=== PATIENT | female | born 1945 | race Hispanic/Latino ===

== ENCOUNTER 2018-09-14 17:41 | Emergency (ER) | payer MEDICARE, BC ==
[~2018-09-14] VITALS: Ht 162.6 cm; Wt 115.2 kg
--- OUTSIDE RECORDS SUMMARY | 2018-09-14 17:44 | XMS REPORT | Summary of Care ---
Author Author [facility] Address Unknown Phone Unavailable Encounter [facility]) [id number] Date(s): 04/11/17 - 05/10/17 [facility] Discharge Disposition: Home or Self Care Attending Physician: Sb Brooke MD Vital Signs No data available for this section Problem List No data available for this section Allergies, Adverse Reactions, Alerts Substance Reaction Severity Status NKDA Active Medications No data available for this section Results No data available for this section Immunizations No data available for this section Procedures Procedure Date Related Diagnosis Body Site Appendectomy Social History Social History Type Response Smoking Status Never smoker; Concerns about tobacco use in household: No; Exposure to Tobacco Smoke None; Cigarette Smoking Last 365 Days No; Reg Smoking Cessation Counseling No Assessment and Plan No data available for this section
--- OUTSIDE RECORDS SUMMARY | 2018-09-14 17:44 | XMS REPORT | Continuity of Care Document ---
Author Author Evon pieter [facility] Interface Address Unknown Phone Unavailable Problems Problem Status Onset Date Classification Date Reported Comments Source Fall from standing 03/12/2018 03/15/2018 [facility] Knee pain, left 03/12/2018 03/15/2018 [facility] LEFT KNEE PAIN Active 03/11/2018 [facility] RIGHT SHOULDER Active 11/30/2016 [facility] [place] UNK Active 04/13/2016 [facility] ENCOUNTER FOR SCREENING FOR MALIGNANT NE Active [facility] PELVIC AND PERINEAL PAIN Active [facility] MENOPAUSAL AND FEMALE CLIMACTERIC STATES Active [facility] Medications Medication Details Route Status Patient Instructions Ordering Provider Order Date Source Acetaminophen 300 MG / Codeine Phosphate 30 MG Oral Tablet [Tylenol with Codeine #3] 1 tab, PO, Q6H, PRN Pain Score 4-6, X 5 day, # 30 tab, 0 Refill(s) Active 03/12/2018 [facility] Motrin 800 mg oral tablet 800 mg=1 tab, PO, Q8H, PRN Pain, Take with food, X 5 day, # 30 tab, 0 Refill(s) Active 03/12/2018 [facility] Acetaminophen 325 MG / Hydrocodone Bitartrate 5 MG Oral Tablet [[place] 5/325] 1 tab, Route: PO, Drug Form: TAB, Dosing Weight 118.636, kg, ONCE, Start date: 03/12/18 0:25:00 CDT, Stop date: 03/12/18 0:25:00 CDTNotes: (Same as: [place] 325/5) Do not exceed 4gm/day of acetaminophen. Inactive 03/12/2018 [facility] Sodium Chloride 0.154 MEQ/ML Injectable Solution 1,000 mL, Rate: 25 ml/hr, Infuse over: 40 hr, Route: IV, Total Volume: 1,000, Start date: 04/14/16 9:18:00 CDT, Duration: 1 day, Stop date: 04/15/16 9:17:00 CDT Inactive 04/14/2016 [facility] Allergies, Adverse Reactions, Alerts Substance Category Reaction Severity Reaction type Status Date Reported Comments Source Immunizations Immunization Date Given Site Status Last Updated Comments Source Results Order Name Results Value Reference Range Date Interpretation Comments Source Knee 3 views DX Knee 3 views DX Patient Name: SEAMUS SANTILLAN : 1945; Age: 72 years y/o Female MR: [id number] Study: 3 view examination of the left knee dated 03/11/2018. Clinical Indication: Left knee pain, fall; Comparison: None No fracture or dislocation. SL: ROSE 03/11/2018 - - Read by: Edmundo Smyth MD Dictated Date/time: 03/11/18 22:36 Electronically Signed by: Edmundo Smyth MD 03/11/18 22:37 FINAL REPORT [facility] Vital Signs Vital Sign Value Date Comments Source Heart Rate 80 03/12/2018 [facility] Temperature Oral (F) 98.6 F 03/12/2018 [facility] Systolic (mm Hg) 146 03/12/2018 [facility] Diastolic (mm Hg) 84 03/12/2018 [facility] Respitory Rate 18 03/12/2018 [facility] Weight 118.636 03/12/2018 [facility] BMI Calculated 44.89 03/12/2018 [facility] Height 162.56 cm 03/12/2018 [facility] Temperature Oral (F) 98.7 F 03/12/2018 [facility] Systolic (mm Hg) 164 03/12/2018 [facility] Diastolic (mm Hg) 98 03/12/2018 [facility] Respitory Rate 18 03/12/2018 [facility] Heart Rate 89 03/12/2018 [facility] Respitory Rate 18 04/14/2016 [facility] Systolic (mm Hg) 133 04/14/2016 [facility] Diastolic (mm Hg) 84 04/14/2016 [facility] Systolic (mm Hg) 144 04/14/2016 [facility] Diastolic (mm Hg) 65 04/14/2016 [facility] Respitory Rate 17 04/14/2016 [facility] Systolic (mm Hg) 106 04/14/2016 [facility] Diastolic (mm Hg) 58 04/14/2016 [facility] Respitory Rate 24 04/14/2016 [facility] Height 157.48 cm 04/14/2016 [facility] Weight 116.364 04/14/2016 [facility] BMI Calculated 46.92 04/14/2016 [facility] Heart Rate 70 04/14/2016 [facility] Encounters Location Location Details Encounter Type Encounter Number Reason For Visit Attending Provider ADM Date DC Date Status Source [facility] Bedded Outpatient [id number] Anjel Price 04/14/2016 04/14/2016 [facility] OP Therapy Patients [id number] Sb Monaco Jr 04/11/2017 05/11/2017 [facility] Emergency [id number] Alessandro Young 03/12/2018 03/12/2018 [facility] Procedures Procedure Code Date Perfomer Comments Source Appendectomy [id number] [facility] Appendectomy [id number] [facility]
--- OUTSIDE RECORDS SUMMARY | 2018-09-14 17:44 | XMS REPORT | Summary of Care ---
Author Author [facility] Organization [facility] Address Unknown Phone Unavailable Encounter ADORE Griggs(CITLALI) [id number] Date(s): 04/14/16 - 04/14/16 [facility] [address] [place] [address]- [phone] Discharge Disposition: Home or Self Care Attending Physician: Marisol Uribe MD Referring Physician: Anjel Price MD Vital Signs 1 2 3 Most recent to oldest [Reference Range]: 157.48 cm (04/14/16 9:18 AM) Height 133/84 mmHg (04/14/16 11:31 AM) 144/65 mmHg *HI* (04/14/16 11:19 AM) 106/58 mmHg (04/14/16 11:03 AM) Blood Pressure [90-140/60-90 mmHg] 18 BRMIN (04/14/16 11:31 AM) 17 BRMIN (04/14/16 11:19 AM) 24 BRMIN *HI* (04/14/16 11:03 AM) Respiratory Rate [14-20 BRMIN] 70 bpm (04/14/16 9:12 AM) Peripheral Pulse Rate [60-100 bpm] 116.364 kg (04/14/16 9:18 AM) Weight 46.92 m2 (04/14/16 9:18 AM) Body Mass Index Problem List No data available for this section Allergies, Adverse Reactions, Alerts Substance Reaction Severity Status NKDA Active Medications sodium chloride 0.9% 1000 ml INJ 1,000 mL 1,000 mL, Rate: 25 ml/hr, Infuse over: 40 hr, Route: IV, Total Volume: 1,000, St art date: 04/14/16 9:18:00 CDT, Duration: 1 day, Stop date: 04/15/16 9:17:00 CDT Start Date: 04/14/16 Stop Date: 04/14/16 Status: Discontinued Results No data available for this section [...]
--- OUTSIDE RECORDS SUMMARY | 2018-09-14 17:44 | XMS REPORT | Summary of Care ---
Author Author [facility] Organization [facility] Address Unknown Phone Unavailable Encounter ADORE Griggs([facility]LAL[facility]) [id number] Date(s): 03/11/18 - 03/12/18 [facility] [address] [place] [address]- Encounter Diagnosis Fall from standing (Discharge Diagnosis) - 03/12/18 Knee pain, left (Discharge Diagnosis) - 03/12/18 Discharge Disposition: Home or Self Care Attending Physician: Alessandro Young MD Vital Signs Most recent to 1 2 oldest [Reference Range]: Height 162.56 cm (03/11/18 9:12 PM) Temperature Oral 98.6 DegF 98.7 DegF [96.4-99.1 DegF] (03/12/18 1:35 AM) (03/11/18 9:12 PM) Blood Pressure 146/84 mmHg 164/98 mmHg [90-140/60-90 mmHg] *HI* *HI* (03/12/18 1:35 AM) (03/11/18 9:12 PM) Respiratory Rate 18 BRMIN 18 BRMIN [14-20 BRMIN] (03/12/18 1:35 AM) (03/11/18 9:12 PM) Peripheral Pulse 80 bpm 89 bpm Rate [60-100 bpm] (03/12/18 1:35 AM) (03/11/18 9:12 PM) Weight 118.636 kg (03/11/18 9:12 PM) Body Mass Index 44.89 m2 (03/11/18 9:12 PM) Problem List No data available for this section Allergies, Adverse Reactions, Alerts Substance Reaction Severity Status NKDA Active Medications Motrin 800 mg oral tablet 800 mg=1 tab, PO, Q8H, PRN Pain, Take with food, X 5 day, # 30 tab, 0 Refill(s) Start Date: 03/12/18 Stop Date: 03/17/18 Status: Ordered [place] 5/325 oral tablet 1 tab, Route: PO, Drug Form: TAB, Dosing Weight 118.636, kg, ONCE, Start date: 0 03/12/18 0:25:00 CDT, Stop date: 03/12/18 0:25:00 CDT Notes: (Same as: [place] 325/5) Do not exceed 4gm/day of acetaminophen. Start Date: 03/12/18 Stop Date: 03/12/18 Status: Completed Tylenol with Codeine #3 oral tablet 1 tab, PO, Q6H, PRN Pain Score 4-6, X 5 day, # 30 tab, 0 Refill(s) Start Date: 03/12/18 Stop Date: 03/17/18 Status: Ordered Results No data available for this section Immunizations No data available for this section Procedures Procedure Date Related Diagnosis Body Site Status Appendectomy Completed Social History Social History Type Response Smoking Status Never smoker; Concerns about tobacco use in household: No; Exposure to Tobacco Smoke None; Cigarette Smoking Last 365 Days No; Reg Smoking Cessation Counseling No entered on: 03/12/18 Assessment and Plan No data available for this section
--- NOTE | 2018-09-14 19:26 | Diagnostic Imaging Report ---
EXAMINATION: CHEST 2 VIEWS INDICATION: Cough, congestion for one week COMPARISON: None FINDINGS: PA and lateral views TUBES and LINES: None. LUNGS: The lungs are diffusely hyperinflated. There are 2 linear bands of chronic atelectasis/scar in the lingula. There is no evidence of pneumonia or pulmonary edema. PLEURA: No pleural effusion or pneumothorax. HEART AND MEDIASTINUM: The heart is normal in size. The aorta is ectatic. BONES AND SOFT TISSUES: There are degenerative changes of the thoracic spine. No focal osseous lesions. Soft tissues are unremarkable. UPPER ABDOMEN: No free air under the diaphragm. IMPRESSION: Pulmonary hyperinflation suggestive of COPD. Subsegmental atelectasis in the lingula. No pulmonary infiltrates to suggest pneumonia. Signed by: Dr. Iftikhar Morales MD on 09/14/2018 7:22 PM
[2018-09-15] MEDS ORDERED: AZITHROMYCIN250 MG PO (01:24)
[2018-09-15 01:25] VITALS: BP 128/78
== END 2018-09-15 01:32 | disposition home or self-care (01) ==
LOC: ER 17:41
DX: R05 Cough (principal); J20.9 Acute bronchitis, unspecified; J00 Acute nasopharyngitis [common cold]
CPT/HCPCS: 71046; 99283

== ENCOUNTER 2021-10-04 01:40 | Emergency (ER) | payer MEDICARE, BC ==
[~2021-10-04] VITALS: Ht 162.6 cm; Wt 115.2 kg
[~2021-10-04 01:40] MED LIST: AZITHROMYCIN250 MG PO
[2021-10-04] MEDS ORDERED: FENTANYL CITRATE/PF 100MCG/2 ML INJ IJ ONE (02:00)
[2021-10-04] MEDS ORDERED: LIDOCAINE 4% PATCH TP STA (02:08)
[2021-10-04] MEDS ORDERED: CYCLOBENZAPRINE5 MG PO (02:10)
[2021-10-04] MEDS ORDERED: [UNRECOGNIZED DRUG - OTHER] EXT (02:13)
== END 2021-10-04 03:48 | disposition home or self-care (01) ==
LOC: ER 01:54
DX: M54.6 Pain in thoracic spine (principal); R73.03 Prediabetes
CPT/HCPCS: 71250; 93005; 99283; J3010

== ENCOUNTER 2021-10-11 20:35 | Emergency (ER) | payer MEDICARE, BC, OTHER ==
[~2021-10-11] VITALS: Ht 162.6 cm; Wt 115.2 kg
[~2021-10-11 20:35] MED LIST changes: +CYCLOBENZAPRINE5 MG PO; +[UNRECOGNIZED DRUG - OTHER] EXT
[2021-10-11] MEDS ORDERED: ACETAMINOPHEN 325 MG TAB PO ONE (22:15)
== END 2021-10-12 01:03 | disposition home or self-care (01) ==
LOC: ER 20:56
DX: S83.91XA Sprain of unspecified site of right knee, initial encounter (principal); S00.81XA Abrasion of other part of head, initial encounter; W18.30XA Fall on same level, unspecified, initial encounter; Y93.01 Activity, walking, marching and hiking; Y92.89 Other specified places as the place of occurrence of the external cause; R73.03 Prediabetes
CPT/HCPCS: 70450; 99283

== ENCOUNTER → 2021-10-21 | Outpatient (CLI) | payer MEDICARE, BC ==
[~2021-10-21] MED LIST changes: +IOPAMIDOL 370 MG/ML 200 ML INFUS..BTL INJ ONE; +SODIUM CHLORIDE 0.9% 50ML 0 ML ONE; +SODIUM CHLORIDE 0.9% 50ML 50 ML ONE
[2021-10-21 13:13] LABS: CREATININE, SERUM 0.64 mg/dL (0.57-1.11)
== END ==
LOC: CT 11:23
PROVIDERS: ATTEND Internal Medicine
DX: R91.8 Other nonspecific abnormal finding of lung field (principal)
CPT/HCPCS: 36415; 71260; 82565; 84520; Q9967

== ENCOUNTER → 2021-11-12 | Outpatient (CLI) | payer MEDICARE, BC ==
[~2021-11-12] MED LIST changes: +ALBUTEROL SULF 0.083% NEB SOLN 3 ML NEB ONE; -IOPAMIDOL 370 MG/ML 200 ML INFUS..BTL INJ ONE; -SODIUM CHLORIDE 0.9% 50ML 0 ML ONE; -SODIUM CHLORIDE 0.9% 50ML 50 ML ONE
== END ==
LOC: RESP 10-29 09:29
PROVIDERS: ATTEND Internal Medicine
DX: R06.09 Other forms of dyspnea (principal)
CPT/HCPCS: 94060; 94640; 94727; 94729